=== PATIENT | female | born 1970 | race African-American/Black ===

== ENCOUNTER 2016-11-14 11:30 | Emergency (ER) | payer MEDICAID ==
[~2016-11-14 11:30] MED LIST: ALBUTEROL SULFATE 2.5 MG/3 ML ONE
[2016-11-14] MEDS ORDERED: FLUORESCEIN OPHTHALMIC 1 MG STRIP ONE (21:16)
[2016-11-14] MEDS ORDERED: PROPARACAINE OPHTH 0.5%, 15ML ONE (21:16)
[2016-11-15] MEDS ORDERED: PHENAZOPYRIDINE 200 MG TABLET ONE (01:20)
[2016-11-15] MEDS ORDERED: MAALOX/HYOSCYAMINE/LIDOCAINE 45 ML BOTTLE ONE ×2 (03:15→03:26)
== END 2016-11-14 11:42 | disposition home or self-care (01) ==
LOC: ED 11:30
DX: J98.01 Acute bronchospasm (principal); F17.210 Nicotine dependence, cigarettes, uncomplicated
CPT/HCPCS: 71020; 94640; 99284

== ENCOUNTER 2017-04-02 23:18 | Emergency (ER) | payer MEDICAID ==
[~2017-04-02] VITALS: Ht 165.1 cm; Wt 70.6 kg
[2017-04-02 23:56] LABS: HCG UR LOT HCG7030192
[2017-04-03] MEDS ORDERED: DIAZEPAM 5 MG TABLET PO ONE
[2017-04-03] MEDS ORDERED: KETOROLAC 30 MG/1 ML IM ONE
[2017-04-03 00:03] LABS: HCG UR OBC PASS; PATH.CAST-FLAG NOT PRESENT; SPERM-FLAG NOT PRESENT; SRC-FLAG NOT PRESENT; XTAL-FLAG NOT PRESENT; YLC-FLAG NOT PRESENT
[2017-04-03] MEDS ORDERED: DIAZEPAM 5 MG TABLET ONE (00:05)
[2017-04-03] MEDS ORDERED: KETOROLAC 30 MG/1 ML ONE (00:06)
[2017-04-03 00:14] VITALS: BP 140/99
[2017-04-03 00:15] LABS: HEMATOCRIT 40.3 % (34.6-47.8); HEMOGLOBIN 13.4 g/dL (11.7-16.4); WHITE BLOOD COUNT 6.9 x10^3/uL (3.4-10)
[2017-04-03 00:26] LABS: BLOOD UREA NITROGEN 11 mg/dL (7-18)
== END 2017-04-03 01:18 | disposition home or self-care (01) ==
LOC: ED 23:56
DX: N30.00 Acute cystitis without hematuria (principal); M54.6 Pain in thoracic spine; I10 Essential (primary) hypertension; Z90.49 Acquired absence of other specified parts of digestive tract
CPT/HCPCS: 36415; 80048; 81001; 81025; 82040; 85025; 87086; 96372; 99284; J1885

== ENCOUNTER 2018-09-21 22:01 | Emergency (ER) | payer MEDICAID ==
[~2018-09-21] VITALS: Ht 167.6 cm; Wt 81.5 kg
[2018-09-21 23:28] VITALS: BP 151/97
== END 2018-09-21 23:30 | disposition home or self-care (01) ==
LOC: ED 23:20
DX: S70.311A Abrasion, right thigh, initial encounter (principal); I10 Essential (primary) hypertension; Z90.49 Acquired absence of other specified parts of digestive tract; Z72.9 Problem related to lifestyle, unspecified; X58.XXXA Exposure to other specified factors, initial encounter; Y93.89 Activity, other specified; Y92.830 Public park as the place of occurrence of the external cause; Y99.8 Other external cause status
CPT/HCPCS: 99281

== ENCOUNTER 2018-10-14 19:25 | Emergency (ER) | payer MEDICAID ==
[~2018-10-14] VITALS: Ht 167.6 cm; Wt 81.6 kg
[2018-10-14 19:40] VITALS: BP 137/90
[2018-10-14 20:30] LABS: BASOPHILS # (AUTO) 0.04 x10^3/uL (0-0.1); BASOPHILS % (AUTO) 1 % (0-1); EOSINOPHILS # (AUTO) 0.15 x10^3/uL (0-0.4); EOSINOPHILS % (AUTO) 3 % (1-7); LYMPHOCYTES # (AUTO) 1.57 x10^3/uL (1-3.4); LYMPHOCYTES % (AUTO) 31 % (22-44); MD NO; MEAN CORPUSCULAR HGB CONC 33.5 g/dL (32.4-35.8); MEAN CORPUSCULAR VOLUME 86.4 fL (80-100); MEAN PLATELET VOLUME 7.4 fL (7.4-10.4); MONOCYTES # (AUTO) 0.34 x10^3/uL (0.2-0.8); MONOCYTES % (AUTO) 7 % (2-9); NEUTROPHILS # (AUTO) 2.99 x10^3/uL (1.8-6.8); NEUTROPHILS % (AUTO) 59 % (42-75); PLATELET COUNT 314 x10^3/uL (130-400); RED BLOOD COUNT 4.73 x10^6/uL (3.82-5.3); RED CELL DISTRIBUTION WIDTH 15.7 % (9.6-15.2)
[2018-10-14 20:41] LABS: ALANINE AMINOTRANSFERASE 23 U/L (12-78); ALBUMIN 3.7 g/dL (3.4-5.0); ANION GAP 4 mmol/L (5-15); CALCIUM 8.8 mg/dL (8.5-10.1); CHLORIDE 109 mmol/L (98-107); CREATININE 0.91 mg/dL (0.55-1.02)
[2018-10-14 20:42] LABS: MICROSCOPIC AUTO
[2018-10-14 20:43] LABS: CULTURE INDICATED? YES
[2018-10-14 20:45] LABS: ALKALINE PHOSPHATASE 83 U/L (45-117); TOTAL PROTEIN 7.1 g/dL (6.4-8.2)
[2018-10-14 20:46] LABS: BILIRUBIN,TOTAL < 0.1 mg/dL (0.2-1.0)
== END 2018-10-14 21:18 | disposition home or self-care (01) ==
LOC: ED 19:53
DX: N39.0 Urinary tract infection, site not specified (principal); M54.6 Pain in thoracic spine; I10 Essential (primary) hypertension; Z72.89 Other problems related to lifestyle
CPT/HCPCS: 36415; 80053; 81001; 84703; 85025; 87086; 99283